=== PATIENT | female | born 1990 | race African-American/Black ===

== ENCOUNTER 2025-01-10 07:29 | Emergency (ER) | payer SELFPAY ==
[2025-01-10 07:31] VITALS: BP 141/93
--- NOTE | 2025-01-10 08:22 | ED.MUSCINJ ---
HPI-Injury
General
Chief Complaint: Musculo-Skeletal Complaint
Source: patient
Exam Limitations: none
Time Seen by Provider: 01/10/25 08:11
Nursing documentation reviewed up to this point in time: agreed with
History of Present Illness-Injury
Is this injury a work related problem?: Yes
Is pt an associate of [facility]/[place]?: No
Initial Injury comments:
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 She has been able to ambulate but with pain.
Past History
Past History
ED Past Medical History: None
ED Past Surgical History: None
Social History
Tobacco: Non-smoker
Employment: Employed ([employer] [place])
Review of Systems
Review of Systems
Allergies reviewed?: Yes
All Other Systems: ROS reviewed and negative except as documented in HPI and ROS
Musculoskeletal: Reports other (pain right ankle and foot)
Skin: Reports no symptoms
Phy Exam
Physical Exam
Physical Exam:
PHYSICAL EXAMINATION:
General: no apparent distress, not acutely ill
Neuro: alert and oriented.
Psychiatric: well kept. interactive and cooperative
Musculoskeletal: Right foot and ankle are without swelling. Tender across anterior and medial ankle, tender along 1st metatarsal. Distal n/v intact. Limited ROM.
Skin: Warm, normal
Injury Course
Orders/Labs/Results
Orders:
Orders
01/10/25 07:34
Ankle, Right 3 view CR [CR Ankle - Right Min 3 Views *] Urgent
Comment:
Reason For Exam: injury
Foot, Right 3 View [CR Foot - Right Min 3 Views] Urgent
Comment:
Reason For Exam: injury
01/10/25 08:22
Darien Wrap Right-Treatment ONCE
MDM/Problems Addressed
Differential Diagnosis Includes:
Soft tissue injury versus fracture
MDM/Problems Addressed:
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 She has been able to ambulate but with pain.
X-rays initially read by this examiner:
X-ray right foot negative
X-ray right ankle negative
Darien wrap applied and patient hightop shoe was put on and gave good support and patient was able to ambulate well.
DC'd via wheelchair
Will f/u with worker's comp provider
*Pulse Oximetry
SaO2: 100
Oxygen Mode of Delivery: Room air
Patient hypoxic: not evaluated
*Critical Care Note
Total Time (30-74mins, 75-104mins- exclusive of procedures): Not Applicable
ED Attending Note
-
Portions of this chart may have been created with voice recognition software.� Occasional wrong word or��sound alike� substitutions may have occurred due to the inherent limitations of voice recognition software.
Discharge Plan
Departure
Patient Disposition: Home (Routine Discharge)
Date of Disposition: 01/10/25
Time of Disposition: 08:24
Patient with high blood pressure during this ER visit?: No
Condition: Good
Discharge Problem:
Soft tissue injury of right ankle, Soft tissue injury of right foot
Instructions: Sprain (DC), Using Cold for Pain
Referrals:
Your [employer] Worker's Comp. doctor [Other] - Tomorrow
Stand Alone Forms: Return to Work
Activity Restrictions/Additional Instructions:
As we discussed, wear the Darien wrap as needed for comfort, support
Tylenol or ibuprofen as needed for pain
See your Worker's Comp. doctor tomorrow for reevaluation and further instruction on back to work
Interventions
Interventions:
*Risk Screen - Suicide Last Done: 01/10/25 07:31
*Neglect/Abuse Screening Last Done: 01/10/25 07:31
*Nursing Disposition Last Done: 01/10/25 09:20
ED-Musculoskeletal Assessment Last Done: 01/10/25 08:23
Discharge Date and Time
Discharge Date/Time: 01/10/25 09:21
Print Language: ITALIAN
== END 2025-01-10 09:21 | disposition home or self-care (01) ==
LOC: EMR 07:29
PROVIDERS: EMERGENCY PHYSICIAN Emergency Medicine
DX: S99.911A Unspecified injury of right ankle, initial encounter (principal); S99.921A Unspecified injury of right foot, initial encounter; X50.1XXA Overexertion from prolonged static or awkward postures, initial encounter
CPT/HCPCS: 99283; 73610; 73630